=== PATIENT | female | born 1975 | race Caucasian/White ===

== ENCOUNTER 2018-03-23 01:40 | Emergency (ER) | payer OTHER, MEDICAID ==
[~2018-03-23] VITALS: Ht 152.4 cm; Wt 88.5 kg
[2018-03-23 03:34] LABS: Basophils # (auto) 0.1 uL; Basophils % (auto) 0.6 % (0.0-2.0); Eosinophils # (auto) 0.2 uL; Hematocrit 38.4 % (36.0-46.0); Lymphocytes % (auto) 32.6 % (10.0-50.0); Mean Corpuscular Hemoglobin 29.3 pg (28.0-32.0); Mean Corpuscular Volume 86.3 fL (80.0-100.0); Monocytes # (auto) 0.6 uL; Monocytes % (auto) 7.1 % (0.0-12.0); Neutrophils # (auto) 5.3 uL; Neutrophils % (auto) 57.7 % (37.0-80.0); Nucleated Red Blood Cells % 0.1 %; Platelet Count (auto) 235 10^3/uL (140-450); Red Blood Cells 4.45 10^6/uL (4.0-5.20); White Blood Cell 9.2 10^3/uL (4.4-10.8)
[2018-03-23 03:51] LABS: Albumin 3.6 g/dL (3.4-5.0); Calcium 8.6 mg/dL (8.5-10.1); Potassium 4.2 mmol/L (3.5-5.1)
[2018-03-23 03:53] LABS: Urine Bacteria NONE SEEN /hpf (None Seen); Urine Blood 3+ /uL (Negative); Urine Mucus FEW (None Seen); Urine Specific Gravity 1.018 (1.001-1.035); Urine WBC 5 /hpf (0 - 5)
[2018-03-23 03:54] LABS: BUN/Creatinine Ratio 20.5; Bilirubin, Total 0.2 mg/dL (0.2-1.0); Total Protein 7.2 g/dL (6.4-8.2)
[2018-03-23] MEDS ORDERED: SODIUM CHLORIDE 0.9% 1,000 ML IV ONE (06:15)
[2018-03-23 07:52] VITALS: BP 105/67
== END 2018-03-23 08:44 | disposition home or self-care (01) ==
LOC: ER 01:47
DX: K59.00 Constipation, unspecified (principal); Z48.01 Encounter for change or removal of surgical wound dressing; Z88.0 Allergy status to penicillin; Z88.2 Allergy status to sulfonamides; Z88.1 Allergy status to other antibiotic agents
CPT/HCPCS: 36415; 74176; 80053; 81001; 83690; 85025; 99285; J7030

== ENCOUNTER 2018-07-06 14:15 | Emergency (ER) | payer OTHER, MEDICAID ==
[~2018-07-06] VITALS: Ht 167.6 cm; Wt 90.7 kg
[2018-07-06] MEDS ORDERED: MORPHINE SULFATE 4 MG/ML SYR/VIAL IV ONE (14:30)
[2018-07-06] MEDS ORDERED: ONDANSETRON HCL 4 MG/2 ML VIAL IV ONE (14:30)
[2018-07-06 14:51] LABS: Basophils # (auto) 0 uL; Basophils % (auto) 0.4 % (0.0-2.0); Eosinophils # (auto) 0 uL; Eosinophils % (auto) 0.1 % (0.0-7.0); Hematocrit 43.8 % (36.0-46.0); Hemoglobin 15.1 g/dL (12.2-16.2); Lymphocytes # (auto) 1.4 uL; Lymphocytes % (auto) 11.8 % (10.0-50.0); Mean Corpuscular Hemoglobin 29.1 pg (28.0-32.0); Mean Corpuscular Hgb Conc. 34.3 g/dL (32.0-36.0); Mean Corpuscular Volume 84.8 fL (80.0-100.0); Monocytes # (auto) 0.4 uL; Monocytes % (auto) 2.9 % (0.0-12.0); Neutrophils # (auto) 10.3 uL; Neutrophils % (auto) 84.8 % (37.0-80.0); Platelet Count (auto) 234 10^3/uL (140-450); Red Blood Cells 5.17 10^6/uL (4.0-5.20); Red Cell Distribution Width 13.2 % (11.8-14.3); White Blood Cell 12.2 10^3/uL (4.4-10.8)
[2018-07-06 15:05] LABS: BUN/Creatinine Ratio 17.4; Calcium 8.9 mg/dL (8.5-10.1); Potassium 4.3 mmol/L (3.5-5.1)
[2018-07-06 15:08] LABS: Bilirubin, Total 0.4 mg/dL (0.2-1.0); Total Protein 8.1 g/dL (6.4-8.2)
[2018-07-06 21:00] VITALS: BP 145/75
[2018-07-06] MEDS ORDERED: ONDANSETRON ODT 4 MG TAB PO ONE (21:15)
[2018-07-06] MEDS ORDERED: MORPHINE SULFATE 4 MG/ML SYR/VIAL IM ONE (21:15)
== END 2018-07-06 21:22 | disposition home or self-care (01) ==
LOC: EDBD 14:15 → ER 14:16
DX: R10.84 Generalized abdominal pain (principal); E11.9 Type 2 diabetes mellitus without complications; Z88.0 Allergy status to penicillin; Z88.2 Allergy status to sulfonamides; Z88.1 Allergy status to other antibiotic agents; Z87.442 Personal history of urinary calculi; Z86.39 Personal history of other endocrine, nutritional and metabolic disease
CPT/HCPCS: 36415; 76705; 76856; 80053; 82150; 83690; 85025; 96372; 99284; J2270; Q0162

== ENCOUNTER 2019-07-22 07:26 | Inpatient (IN) | payer OTHER, MEDICAID ==
[~2019-07-22] VITALS: Ht 152.4 cm; Wt 91.5 kg
[~2019-07-22 07:26] MED LIST: BACL5TAB2 PO; MELO1TAB56 PO; PERCOT PO
[2019-07-22] MEDS ORDERED: CLINDAMYCIN 900MG IV 50 ML IV ONE (09:15)
[2019-07-22] MEDS ORDERED: GENTAMICIN SULF 80 MG/2 ML VIAL ONE (09:33)
[2019-07-22] MEDS ORDERED: SODIUM CHLORIDE LOCK 10 ML ONE (10:40)
[2019-07-22] MEDS ORDERED: fentaNYL CITRATE 100 MCG/2 ML VL ONE (10:40)
[2019-07-22] MEDS ORDERED: MIDAZOLAM HCL 1MG/1ML-2 ML VIAL ONE (10:40)
[2019-07-22] MEDS ORDERED: GLYCOPYRROLATE 0.2 MG/ML 1ML VIAL ONE (10:40)
[2019-07-22] MEDS ORDERED: fentaNYL CITRATE 5 ML ONE (10:40)
[2019-07-22] MEDS ORDERED: MEPERIDINE HCL (25 MG/ML) 1ML VIAL ONE (10:40)
[2019-07-22] MEDS ORDERED: ONDANSETRON HCL 4 MG/2 ML VIAL ONE (10:40)
[2019-07-22] MEDS ORDERED: PROPOFOL 10 MG/ML 20 ML IV ONE (10:40)
[2019-07-22] MEDS ORDERED: NEOSTIGMINE 1 MG/ML INJ (10mg/10ML VIAL) ONE (10:40)
[2019-07-22] MEDS ORDERED: METOCLOPRAMIDE HCL 5MG/ml INJ 2ml VIAL IV PRN (11:00)
[2019-07-22] MEDS ORDERED: HYDROmorphone HCL 2 MG/ML VL IV PRN (11:00)
[2019-07-22] MEDS ORDERED: fentaNYL CITRATE 100 MCG/2 ML VL IV PRN (11:00)
[2019-07-22] MEDS ORDERED: MORPHINE SULFATE 4 MG/ML SYR/VIAL IV PRN (11:00)
[2019-07-22] MEDS ORDERED: ROCURONIUM 10MG/ML 10ML VIAL IV ONE (11:09)
[2019-07-22] MEDS ORDERED: SUCCINYLCHOLINE CHLORIDE 20 MG/ML 10ML VIAL IV ONE (11:09)
[2019-07-22] MEDS ORDERED: fentaNYL CITRATE 250 MCG/5 ML VL IV ONE (11:09)
[2019-07-22] MEDS: LACTATED RINGER'S 1,000 ML IV SCH ×2 (13:27→21:23)
[2019-07-22] MEDS ORDERED: ACETAMINOPHEN IV 100 ML IV ONE (13:30)
[2019-07-22] MEDS ORDERED: MORPHINE SULF INJ 2 MG/ML SYRINGE 1ML ONE (14:26)
--- NOTE | 2019-07-22 14:48 | NUR ---
received report from PACU
--- NOTE | 2019-07-22 15:00 | NUR ---
MS admit from PACU KALEN CEBALLOS admitted to [facility] after SBAR received. Patient oriented to TORY FRANCO, primary RN, unit, room, bed, and unit policies regarding patient care and visiting hours. Patient weighed by bedscale and encouraged to call if they need something. PT still drowsy but verbally alert and responsive. All questions and concerns addressed, patient verbalized understanding. Note:
[2019-07-22 15:34] VITALS: BP 122/69
[2019-07-22] MEDS: HYDROmorphone HCL 2 MG/ML VL IV PRN ×2 (16:53→21:23)
[2019-07-22] MEDS: ONDANSETRON HCL 4 MG/2 ML VIAL IV PRN ×2 (16:53→21:23)
[2019-07-22 17:00] VITALS: BP 118/70
[2019-07-22] MEDS: KETOROLAC TROMETH 15 mg/ml 1ML VL IV SCH (17:51)
[2019-07-22 22:00] VITALS: BP 106/62
[2019-07-23] MEDS: KETOROLAC TROMETH 15 mg/ml 1ML VL IV SCH ×4 (00:19→17:01)
[2019-07-23 05:00] VITALS: BP 103/60
[2019-07-23] MEDS: LACTATED RINGER'S 1,000 ML IV SCH ×3 (05:05→18:17)
[2019-07-23] MEDS: ONDANSETRON HCL 4 MG/2 ML VIAL IV PRN ×4 (06:32→21:36)
[2019-07-23 07:14] LABS: Basophils # (auto) 0 10 ^3/uL (0-0.2); Basophils % (auto) 0.1 % (0.0-2.0); Eosinophils # (auto) 0 10 ^3/uL (0-0.8); Hematocrit 37.4 % (36.0-46.0); Hemoglobin 12.5 g/dL (12.2-16.2); Lymphocytes # (auto) 1.3 10 ^3/uL (0.4-5.4); Lymphocytes % (auto) 8.8 % (10.0-50.0); Mean Corpuscular Hemoglobin 29.1 pg (28.0-32.0); Mean Corpuscular Hgb Conc. 33.5 g/dL (32.0-36.0); Monocytes # (auto) 0.7 10 ^3/uL (0-1.3); Monocytes % (auto) 4.8 % (0.0-12.0); Neutrophils # (auto) 12.6 10 ^3/uL (1.6-8.6); Neutrophils % (auto) 86.3 % (37.0-80.0); Platelet Count (auto) 207 10^3/uL (140-450); Red Blood Cells 4.29 10^6/uL (4.0-5.20); White Blood Cell 14.7 10^3/uL (4.4-10.8)
--- NOTE | 2019-07-23 07:23 | NUR ---
Opening Shift Note Assumed care of patient, awake and alert. No S/S of distress/SOB or pain. Instructed on POC and to call for assist PRN, notified pt we will remove ordonez this morning will continue to monitor for changes Q1hr and PRN.
[2019-07-23 07:31] LABS: Calcium 8.5 mg/dL (8.5-10.1); Potassium 3.7 mmol/L (3.5-5.1)
[2019-07-23 07:33] LABS: BUN/Creatinine Ratio 9.6
[2019-07-23 07:40] LABS: Bilirubin, Total 0.5 mg/dL (0.2-1.0); Total Protein 6.7 g/dL (6.4-8.2)
--- NOTE | 2019-07-23 08:22 | NUR ---
Ambrocio catheter dc'd Order to discontinue Ambrocio catheter. Ambrocio dc'd with clean technique following deflation of balloon. Patient tolerated well with no complaints of pain. 950 ML clear yellow urine in bag upon removal Continue care.
[2019-07-23 09:00] VITALS: BP 98/47
[2019-07-23] MEDS ORDERED: SIMETHICONE 80 MG CHEWABLE TABLET PO PRN (09:15)
--- NOTE | 2019-07-23 09:57 | NUR ---
MD GOULD ROUNDED ON PATIENT ADVANCED DIET TO FULL LIQUID ADVANCED TO REGULAR ONCE FLATULENCE HAS STARTED
[2019-07-23] MEDS: DOCUSATE SOD 100 MG CAP PO SCH ×2 (10:25→21:34)
[2019-07-23] MEDS: levoFLOXacin 500MG 100 ML IV SCH (10:25)
[2019-07-23] MEDS: HYDROmorphone HCL 2 MG/ML VL IV PRN ×2 (10:26→21:35)
[2019-07-23 13:00] VITALS: BP 83/46
[2019-07-23 17:00] VITALS: BP 113/80
--- NOTE | 2019-07-23 19:35 | NUR ---
Opening Shift Note Assumed care of patient, awake and alert x4. No S/S of distress/SOB or pain. Dressing to abdomen is C/D/I, abdominal binder is also in place. Call light is within reach, side rails up x2, bed is in lowest position. Instructed on POC and to call for assist PRN, will continue to monitor for changes Q1hr and PRN.
--- NOTE | 2019-07-23 20:00 | NUR ---
IV removal from right hand IV DC'd with clean sterile technique, catheter fully intact. Pressure dressing applied to site. Patient tolerated well.
--- NOTE | 2019-07-23 20:20 | NUR ---
IV insertion to LFA IV access obtained, via clean sterile technique by inserting 22 gauge catheter at the LFA after 1 attempt(s). IV secured properly. No trauma to site. Patient tolerated well.
[2019-07-23 22:00] VITALS: BP 116/72
[2019-07-24] MEDS: KETOROLAC TROMETH 15 mg/ml 1ML VL IV SCH ×5 (00:16→23:32)
[2019-07-24] MEDS: ONDANSETRON HCL 4 MG/2 ML VIAL IV PRN ×2 (01:33→09:49)
[2019-07-24 05:00] VITALS: BP 105/69
[2019-07-24] MEDS: LACTATED RINGER'S 1,000 ML IV SCH (05:15)
--- NOTE | 2019-07-24 08:30 | NUR ---
pt yasminkiashanti around unit reports increasing gas since yesterday but no bowel movement yet
[2019-07-24 08:37] VITALS: BP 113/74
[2019-07-24] MEDS: levoFLOXacin 500MG 100 ML IV SCH (09:48)
[2019-07-24] MEDS: DOCUSATE SOD 100 MG CAP PO SCH ×2 (09:49→21:59)
--- NOTE | 2019-07-24 10:16 | NUR ---
pt complained of feeling anxious and headache and feeling off stated that levofloxacin is in the same family as ciprofloxcin and to turn it off and to ask md kellogg if he can change it. iv turned off resumed fluids.
--- NOTE | 2019-07-24 11:03 | NUR ---
MD JO ROUNDED Made aware of pt stating she had reaction to antibiotic, per md stop iv fluids change dressing clean with ns place abd dressing and abd binder pt will be discharged in am
[2019-07-24 12:39] VITALS: BP 135/77
[2019-07-24 17:00] VITALS: BP 103/73
--- NOTE | 2019-07-24 17:18 | NUR ---
IV INFILTRATED AND PER PT REQUEST REMOVED, PT REFUSING NEW IV AT THIS TIME DUE TO HER LEAVING IN THE AM, RISK AND BENEFITS EXPLAINED
--- NOTE | 2019-07-24 17:19 | NUR ---
NOTIFIED MD JO MADE HIM AWARE OF PT IV REMOVAL AND REFUSAL FOR NEW IV INSERTION, REQUESTED PO PAIN MANAGEMENT NEW ORDERS NOTED
--- NOTE | 2019-07-24 17:19 | NUR ---
IV removal IV DC'd with clean sterile technique, catheter fully intact. Pressure dressing applied to site. Patient tolerated well. NOTE:
[2019-07-24] MEDS ORDERED: HYDROcodone-ACET 5/325MG TAB PO PRN (17:30)
--- NOTE | 2019-07-24 17:39 | NUR ---
CAME TO ROOM TO OFFER PT NORCO 2 TABS ORDERED FOR PAIN, PT REFUSED STATED "I WAS ON PERCOCET NORCO LOWER YOUR CELLULAR IMMUNITY AND ARE NOT GOOD FOR YOU PLUS I HAVENT POOPED, IF I CAN AVOID TAKING PAIN MEDICINE I WILL"
--- NOTE | 2019-07-24 19:30 | NUR ---
Opening Shift Note Assumed care of patient, awake and alert x4. No S/S of distress/SOB. Complaints of pain to the lower abdomen, pain management options discussed. Dressing to lower abdomen is C/D/I, abdominal binder is in place. There is no IV access, Dr. Pulido is aware. Call light is within reach, side rails up x2, bed is in lowest position. Instructed on POC and to call for assist PRN. All questions and concerns answered, will continue to monitor for changes Q1hr and PRN.
[2019-07-24] MEDS: HYDROcodone-ACET 5/325MG TAB PO PRN (19:42)
--- NOTE | 2019-07-24 19:43 | NUR ---
PAIN Hudson 5 given to patient after complaints of 6/0-10 to the lower abdomen where the surgical incision is, the pain is sharp in nature. Will reassess.
--- NOTE | 2019-07-24 21:00 | NUR ---
Pain reassessment Pain level is 4/0-10, this is tolerable for the patient. Will continue to monitor.
[2019-07-24 22:00] VITALS: BP 98/59
[2019-07-25] MEDS: HYDROcodone-ACET 5/325MG TAB PO PRN ×2 (00:45→08:24)
[2019-07-25 05:00] VITALS: BP 97/67
[2019-07-25] MEDS: KETOROLAC TROMETH 15 mg/ml 1ML VL IV SCH ×3 (05:56→18:00)
[2019-07-25 09:00] VITALS: BP 123/72
[2019-07-25] MEDS: levoFLOXacin 500MG 100 ML IV SCH (10:00)
[2019-07-25] MEDS: DOCUSATE SOD 100 MG CAP PO SCH (10:12)
--- NOTE | 2019-07-25 10:18 | NUR ---
Refused Levaquin Patient refused IV Levaquin stating it caused pain and made her have disturbed thoughts. Also patient does not have an IV. aware.
[2019-07-25 13:00] VITALS: BP 107/56
[2019-07-25] MEDS ORDERED: IBUPROFEN 800 MG TAB PO PRN (13:30)
[2019-07-25 17:00] VITALS: BP_SYST 107; BP_SYST 112; BP_DIAS 56; BP_DIAS 57
--- NOTE | 2019-07-25 18:41 | NUR ---
Discharge Went over discharge paperwork with patient. She has no IV access. Removed ID band. removed sadi this afternoon and applied steri strips. Steri strips clean, dry, and intact. Prescriptions given to patient. She is currently waiting for her to pick her up and take her home in private vehicle with all personal belongings. Patient has been ambulating in the hallways with no problem, but will be taken out in a wheelchair due to the long distance and recent surgery.
--- NOTE | 2019-07-25 19:39 | NUR ---
Patient Discharged Upon her arriving, patient taken downstairs with a wheelchair due to recent surgical procedure. picked her up in a private vehicle and patient had all her personal belongings with her. At this time patient has no s/s of distress or SOB, patient complains of no pain.
== END 2019-07-25 19:39 | disposition home or self-care (01) | DRG 743 ==
LOC: OVERFLOW 07:26 → EDSTATUS 08:30 → CENTRAL 15:22
PROVIDERS: ADMIT Specialist; ATTEND Specialist
PROC: 0UB10ZZ Excision of Left Ovary, Open Approach (ICD-10-PCS; 2019-07-22)
PROC: 0UB70ZZ Excision of Bilateral Fallopian Tubes, Open Approach (ICD-10-PCS; 2019-07-22)
PROC: 0UT90ZL Resection of Uterus, Supracervical, Open Approach (ICD-10-PCS; principal; 2019-07-22 11:19)
DX: D25.9 Leiomyoma of uterus, unspecified (principal); Z88.8 Allergy status to other drugs, medicaments and biological substances; N94.6 Dysmenorrhea, unspecified; N92.0 Excessive and frequent menstruation with regular cycle; F43.10 Post-traumatic stress disorder, unspecified; N83.202 Unspecified ovarian cyst, left side; Z98.51 Tubal ligation status; E66.01 Morbid (severe) obesity due to excess calories; Z88.0 Allergy status to penicillin; Z68.39 Body mass index [BMI] 39.0-39.9, adult
CPT/HCPCS: 36415; 80053; 82962; 85025; 86850; 86900; 86901; 88302; G0378; J0131; J0330; J1956; J2250; J2405; J2704; J3490

== ENCOUNTER 2019-07-31 18:25 | Emergency (ER) | payer OTHER, MEDICAID ==
[~2019-07-31] VITALS: Ht 152.4 cm; Wt 93.0 kg
[2019-08-01 00:03] VITALS: BP 111/56
[2019-08-01] MEDS ORDERED: KETOROLAC TROMETH 60MG/2ML VIAL IM ONE (01:15)
== END 2019-08-01 01:55 | disposition home or self-care (01) ==
LOC: ER 18:25
DX: S39.012A Strain of muscle, fascia and tendon of lower back, initial encounter (principal); N39.0 Urinary tract infection, site not specified; T81.49XA Infection following a procedure, other surgical site, initial encounter; M54.41 Lumbago with sciatica, right side; E11.9 Type 2 diabetes mellitus without complications; Z87.442 Personal history of urinary calculi; Z88.0 Allergy status to penicillin; Z88.2 Allergy status to sulfonamides; Z88.8 Allergy status to other drugs, medicaments and biological substances; Z90.710 Acquired absence of both cervix and uterus; X50.1XXA Overexertion from prolonged static or awkward postures, initial encounter; Y93.89 Activity, other specified; Y92.89 Other specified places as the place of occurrence of the external cause; Y99.8 Other external cause status
CPT/HCPCS: 96372; 99283; J1885